=== PATIENT | male | born 1995 | race African-American/Black ===

== ENCOUNTER 2017-09-18 11:35 | Emergency (ER) | payer OTHER ==
[~2017-09-18] VITALS: Ht 180.3 cm; Wt 100.0 kg
[~2017-09-18 11:35] MED LIST: NOCURR
[2017-09-18] MEDS ORDERED: PERTUSS(ACELL),DIPH,TET VAC/PF 0.5 ML VIAL IM ONE (12:00)
[2017-09-18 12:25] VITALS: BP 122/58
== END 2017-09-18 12:38 | disposition short-term general hospital (02) ==
LOC: EMS 11:36
DX: S31.114A Laceration without foreign body of abdominal wall, left lower quadrant without penetration into peritoneal cavity, initial encounter (principal); F12.10 Cannabis abuse, uncomplicated; W26.9XXA Contact with unspecified sharp object(s), initial encounter; Y93.89 Activity, other specified; Y92.89 Other specified places as the place of occurrence of the external cause; Y99.8 Other external cause status
CPT/HCPCS: 90471; 90715; 99285